=== PATIENT | male | born 1985 | race Caucasian/White ===

== ENCOUNTER → 2017-08-18 | Outpatient (CLI) | payer SELFPAY ==
[2017-08-19 16:41] LABS: ABSTINENCE 4.5 d; APPEARANCE Normal; COMMENT ND (()); MOTILE/EJACULATE 0 x10(6) (>=9.0); MOTILE/mL 0 x10(6) (>=6.0); MOTILITY 0 % (>=40); SEMEN PH 8.5 (>=7.2); SEMEN VOLUME 2.5 mL (>=1.5); SPERM/ML 0.05 x10(6) (>=15.0)
== END ==
LOC: CLAB 07:06
PROVIDERS: ATTEND Urology
DX: N46.9 Male infertility, unspecified (principal)
CPT/HCPCS: 89322